=== PATIENT | male | born 1995 | race Caucasian/White ===

== ENCOUNTER 2020-12-24 11:09 | Emergency (ER) | payer OTHER ==
[~2020-12-24] VITALS: Ht 185.4 cm; Wt 111.9 kg
--- NOTE | 2020-12-24 11:38 | REP ---
INDICATION: pain limited rom COMPARISON: None. TECHNIQUE: Internal rotation, external rotation, and Y view. FINDINGS: No acute fracture or dislocation. The acromioclavicular and glenohumeral joints are intact. No periarticular calcifications or degenerative changes are appreciated. Sub acromial space is normal. Surrounding soft tissues are unremarkable. IMPRESSION: Normal right shoulder radiographs. <Electronically signed by Varun Restrepo > 12/24/20 [id number]
[2020-12-24] MEDS ORDERED: CYCLOBENZAPRINE 10MG TABLET PO ONE (12:15)
[2020-12-24] MEDS ORDERED: KETOROLAC 30 MG/ML 1ML VIAL IM ONE (12:15)
--- NOTE | 2020-12-24 12:25 | REP ---
INDICATION: R ulnar wrist pain COMPARISON: None. TECHNIQUE: AP, lateral, bilateral oblique views right wrist. FINDINGS: The carpal bones, surrounding osseous structures, soft tissues, and joint spaces are normal. There is no evidence for acute fracture or dislocation. No subcutaneous emphysema or radiodense foreign body. IMPRESSION: Normal wrist series. No acute fracture or dislocation. <Electronically signed by Varun Restrepo > 12/24/20 [id number]
[2020-12-24 12:53] VITALS: BP 142/84
== END 2020-12-24 12:56 | disposition home or self-care (01) ==
LOC: M ED 11:09
DX: S46.011A Strain of muscle(s) and tendon(s) of the rotator cuff of right shoulder, initial encounter (principal); Y92.9 Unspecified place or not applicable; Y93.B3 Activity, free weights; Y99.9 Unspecified external cause status; X50.0XXA Overexertion from strenuous movement or load, initial encounter
CPT/HCPCS: 73030; 73110; 96372; 99284; J1885

== ENCOUNTER 2021-03-24 08:53 | Day surgery (SDC) | payer OTHER ==
[~2021-03-24] VITALS: Ht 185.4 cm; Wt 109.3 kg
[~2021-03-24 08:53] MED LIST: LIDOCAINE 1% MDV 20ML VIAL SQ PRN; LR 1,000 ML IV ONE; ceFAZolin SOD 2 GM in IV 1 EA IV ONE
[2021-03-24] MEDS ORDERED: LIDOCAINE 2% 100MG/5ML SDV (FOR ANES.) As Ordered ONE (09:12)
[2021-03-24] MEDS ORDERED: ROCURONIUM BROMIDE 50 MG/5 ML VIAL As Ordered ONE ×2 (09:12→11:50)
[2021-03-24] MEDS ORDERED: ACETAMINOPHEN 1000MG 100ML IV BTL (OFIRMEV) (J0131 PER 10MG) As Ordered ONE (09:12)
[2021-03-24] MEDS ORDERED: KETOROLAC 60MG 2ML VIAL As Ordered ONE ×2 (09:12→09:27)
[2021-03-24] MEDS ORDERED: SUGAMMADEX SODIUM 500 MG/5 ML VIAL (BRIDION) As Ordered ONE (09:12)
[2021-03-24] MEDS ORDERED: dexameTHASONE 4 MG/ML 1ML VIAL (J1100 PER 1MG) As Ordered ONE (09:12)
[2021-03-24] MEDS ORDERED: propofoL 200 MG/20 ML VIAL As Ordered ONE ×2 (09:12→09:27)
[2021-03-24] MEDS ORDERED: ONDANSETRON 4MG/2ML VIAL As Ordered ONE (09:12)
[2021-03-24] MEDS ORDERED: fentaNYL 100 MCG/2 ML INJECTION (J3010) As Ordered ONE (09:13)
[2021-03-24] MEDS ORDERED: MIDAZOLAM INJ 2MG/2ML VIAL (J2250 PER 1MG) As Ordered ONE (09:13)
[2021-03-24] MEDS ORDERED: BUPIVACAINE/EPIN 0.25% 30 ML VIAL As Ordered ONE (10:23)
[2021-03-24] MEDS ORDERED: HYDROmorphone HCL 2 MG/ML 1ML VIAL (J1170) As Ordered ONE (11:52)
[2021-03-24] MEDS ORDERED: DESFLURANE 240 ML INHALANT As Ordered ONE (12:08)
[2021-03-24] MEDS ORDERED: MORPHINE 4 MG/ML 1ML VIAL/SYRINGE (J2270) IV PRN (14:35)
[2021-03-24] MEDS ORDERED: METOCLOPRAMIDE INJ 10MG/2ML VIAL (J2765 PER 1) IV PRN (14:35)
[2021-03-24] MEDS ORDERED: ONDANSETRON 4MG/2ML VIAL IV PRN ×2 (14:35→14:40)
[2021-03-24] MEDS ORDERED: fentaNYL 100 MCG/2 ML INJECTION (J3010) IV PRN (14:35)
[2021-03-24] MEDS ORDERED: PERCOCET 5MG/325MG TAB PO PRN ×2 (14:35)
[2021-03-24] MEDS ORDERED: ACETAMINOPHEN TAB 650MG DOSE (2X325MG) PO PRN (14:35)
[2021-03-24] MEDS ORDERED: LR 1,000 ML IV SCH (14:35)
--- NOTE | 2021-03-24 14:47 | ROOPDOC ---
[facility] Report Of Operation Report of Operation DATE OF PROCEDURE: 03/24/21 PREPROCEDURE DIAGNOSES: Right pectoralis major tear POSTPROCEDURE DIAGNOSES: Same. PROCEDURE: Repair right pectoralis major tendon. SURGEON: Dr. Jimmy Downey MD SEO EXECUTIVE: None, ANESTHESIA: Gen. anesthesia Dr. Hanna. ESTIMATED BLOOD LOSS: Approximately 30 mL. COMPLICATIONS: None. REMARKS: None. PROCEDURE NOTE: This 25-year-old man sustained a tear of his pectoralis major sternal head. He wished to go ahead with repair. I discussed the pros and cons and risks and benefits of nonsurgical treatment versus surgical repair. He wished to go ahead and marked the right upper extremity. He had no further questions. DESCRIPTION OF PROCEDURE: The patient was brought to the operating room theater. They were placed supine on the beachchair positioner. All bony prominences were padded. Sequential devices used on the legs. Spider arm positioner to the patient's right side. Gen. anesthesia was induced. 2 g IV Ancef was administered prior to surgery case. Patient was sat up and a 50 angle. Right upper extremity was prepped and draped in the usual sterile fashion. Chlorhexidine-based prep solution was allowed to thoroughly dry over 3 minutes prior to draping. Preoperative timeout was performed to confirm the site the patient and surgery. I began by making a standard anterior axillary-based approach to the right shoulder. He carried the dissection down through skin and subcutaneous tissue achieve meticulous hemostasis. I identified the pectoralis muscle belly as well as the deltoid muscle belly. I identified the inferior most aspect of the pectoralis major. I dissected on the undersurface of this. Identified the long head of the biceps as well as the deltoid insertion. There is quite a bit of scar tissue already that I had to dissect and mobilize the tendon insertion as well as inferior to this. I did get good excursion of the tendon. I slightly decorticated the insertion of the pectoralis major sternal head. This was just lateral to the biceps long head intertubercular groove. I then used the Arthrex kit for pectoralis repair. I passed fiber tapes #2 in a Krakw running lock fashion to create 4 suture tails. Platinum removed, and 2 tails were passed superiorly through a button in opposite fashion into the button, for a total of 2 buttons and 4 suture tails. I then drilled my 2 holes by approximately 4 cm, these were lateral to the LHB ensuring to keep the sheath intact. I ensured that they were not collinear to avoid stress riser. I passed the buttons superiorly and inferiorly. I placed the buttons, flipped them, and used the tension slide technique to deliver the tendon onto the repair site. Repair was solid. At the inferior button that one suture tail did not fully slide so I had to tie this over top of the tendon to ensure that the repair was solid without evidence or chance of backout or slack in the system. In addition the superior tension slide appeared appropriate and then I did take a Kline needle and pass another stitch through the leading edge of the tendon and tied this down again with 5 alternating half hitches and cut the sutures short. Wound was thoroughly irrigated. Subcutaneous tissue closed with 2-0 Vicryl sutures. Dressing was Prineo, with dermabond. Allowed to thoroughly dry prior to removing the drapes. Patient's upper extremity was placed into a sling with the arm at the side of the body. Case was terminated. Patient woken up from general anesthetic transferred off the operating room table and taken to postanesthetic care unit in stable condition. All sponge needle and instrument counts correct. No complications. Plan the patient is to be discharged home when they are comfortable. Follow-up in the office in 2 weeks' time. I have given him and his Noreen strict instructions to remain with the arm at the side of the body but they can remove the sling for elbow and wrist exercises and showering over top starting postoperative day 1. Risk factors for harms from taking opioid medications discussed and assessed including but not limited to personal or family history of substance use disorder, anxiety or depression, , age 65 or older, COPD or other underlying respiratory conditions, and renal or hepatic insufficiency. Discussed with patient concerns and determined any harms they may experience or be currently experiencing such as nausea or constipation, feeling sedated or confused, breathing interruptions during sleep, or taking or craving more opioids than prescribed or difficulty controlling use (addiction). Discussed early warning signs of overdose including confusion, sedation, slurred speech, abnormal gait. Postoperative wound instructions were given. It was recommended to keep the wound clean and dry. It was reinforced with the patient that they should call us or be seen immediately for redness, drainage, or fever. JIMMY DOWNEY MD Mar 24, 2021 14:47
[2021-03-24 15:45] VITALS: BP 135/70
== END 2021-03-24 16:06 | disposition home or self-care (01) ==
LOC: M SDC 08:53
PROVIDERS: ATTEND Orthopaedic Surgery Sports Medicine
DX: S29.011A Strain of muscle and tendon of front wall of thorax, initial encounter (principal); X50.0XXA Overexertion from strenuous movement or load, initial encounter; Y92.89 Other specified places as the place of occurrence of the external cause; Y93.B3 Activity, free weights; Y99.8 Other external cause status; F17.290 Nicotine dependence, other tobacco product, uncomplicated
CPT/HCPCS: 24341; C1713; J0131; J0690; J1100; J1170; J1885; J2250; J2405; J3010